=== PATIENT | male | born 1945 | race Caucasian/White ===

== ENCOUNTER → 2016-09-05 | Outpatient (CLI) | payer OTHER ==
--- NOTE | ~2016-09-05 | 2DMMODE ---
[facility] [address] [place] [address] 2 D/M-MODE ECHOCARDIOGRAM Name: BORA LOVE Room #: REG [facility]#: [id number] Admission: 09/05/16 Attend Phys: Trent Jaime MD Discharge: Date of : 47 Date of Service: 09/05/16 1518 Report #: [id number] THIS REPORT FOR: //name// APPROVED REPORT Study performed: 09/05/2016 14:12:44 EXAM: Comprehensive 2D, Doppler, and color-flow Echocardiogram Patient Location: Out-Patient Blood Pressure: 148/88 mmHg HR: 71 bpm Other Information Study Quality: Good Indications Hypertension/HDD 2D Dimensions RVDd: 33.81 mm LVEF(%): 55.27 (>50%) IVSd: 9.42 (7-11mm) LVOT Diam: 21.98 (18-24mm) LVDd: 44.99 mm PWd: 10.03 (7-11mm) Ascending Ao: 32.40 (22-36mm) LVDs: 32.12 (25-40mm) Aortic Root: 32.54 mm IVC: 16.00 mm Alvarez's LVEF: 55.27 % Volumes Left Atrial Volume (Systole) Single Plane 4CH: 34.69 mL Single Plane 2CH: 54.77 mL LA ESV Index: 25.00 mL/m2 Aortic Valve AoV Peak Brendon.: 1.27 m/s AO Peak Gr.: 6.46 mmHg LVOT Max P.14 mmHg LVOT Max V: 1.02 m/s Mitral Valve E/A Ratio: 0.8 MV Decel. Time: 252.69 ms MV E Max Brendon.: 0.54 m/s MV A Brendon.: 0.70 m/s [facility] [place] [address] 2 D/M-MODE ECHOCARDIOGRAM Name: BORA LOVE Room #: REG [facility]#: [id number] Admission: 09/05/16 Attend Phys: Trent Jaime MD Discharge: Date of : 47 Date of Service: 09/05/16 1518 Report #: [id number] MV PHT: 73.28 ms Pulmonary Valve PV Peak Brendon.: 0.96 m/s PV Peak Gr.: 3.69 mmHg Pulmonary Vein P Vein S: 67.7 m/s P Vein D: 26.6 m/s P Vein A Dur.: 23.3 m/s Tricuspid Valve TR Peak Brendon.: 2.19 m/s RAP Estimate: 5.00 mmHg TR Peak Gr.: 19.21 mmHg Left Ventricle The left ventricle is normal size. There is normal left ventricular wall thickness. The left ventricular systolic function is normal. The left ventricular ejection fraction is within the normal range. LVEF is 55-60%. Grade I - abnormal relaxation pattern. Right Ventricle The right ventricle is normal size. The right ventricular systolic function is normal. Atria The left atrium size is normal. The right atrium size is normal. Aortic Valve The aortic valve is normal in structure. No aortic regurgitation is present. There is no aortic valvular stenosis. Mitral Valve The mitral valve is normal in structure. Mild mitral regurgitation. No evidence of mitral valve stenosis. Tricuspid Valve The tricuspid valve is normal in structure. There is trace tricuspid regurgitation. The right atrial pressure is estimated at 5 mmHg. There is no pulmonary hypertension. The estimated PAP was 30 mmHg. Pulmonic Valve The pulmonary valve is normal in structure. There is no pulmonic valvular regurgitation. [employer] [address] [address] 2 D/M-MODE ECHOCARDIOGRAM Name: BORA LOVE Room #: REG [facility]#: [id number] Admission: 09/05/16 Attend Phys: Trent Jaime MD Discharge: Date of : 47 Date of Service: 09/05/16 1518 Report #: [id number] The aortic root is normal in size. IVC is normal in size and collapses >50% with inspiration. Pericardium There is no pericardial effusion. <Conclusion> The left ventricle is normal size. LVEF is 55-60%. The aortic valve is normal in structure. The mitral valve is normal in structure. Mild mitral regurgitation. The pulmonary valve is normal in structure. <ELECTRONICALLY SIGNED> By: Rakan Andrade MD, FACC 09/05/16 1518 1518 1518 Rakan Andrade MD, FAC /INF
== END ==
LOC: CV 13:55
DX: I10 Essential (primary) hypertension (principal)

== ENCOUNTER → 2017-02-06 | Outpatient (CLI) | payer OTHER ==
--- NOTE | ~2017-02-06 | 2DMMODE ---
[facility] [employer] [place] [address] 2 D/M-MODE ECHOCARDIOGRAM Name: BORA LOVE JR Room #: REG [facility]#: [id number] Admission: 02/06/17 Attend Phys: Trent Jaime MD Discharge: Date of : 47 Date of Service: 02/06/17 1533 Report #: [id number] THIS REPORT FOR: //name// APPROVED REPORT Exam: Comprehensive 2D, Doppler, and color-flow Echocardiogram Indication: Atrial Fibrillation Patient Location: Echo lab Stress Nurse: Antonia Snow RN Status: routine Ht: 5 ft 10 in BP: 160/80 mmHg Medical History Medical History: HTN, Hyperlipidemia Cardiac Risk Factors: HTN, Hyperlipidemia Procedure The patient underwent an Exercise Stress Test using the Payam Protocol. Blood pressure, heart rate, and EKG were monitored. An Echocardiogram was performed by structures technician in four stages in quad fashion. At peak stress, four selected images were obtained and placed side by side with resting images for comparison. Stress Test Details Stress Test: Exercise stress testing was performed using a Payam protocol. HR Resting HR: 81 bpm Max Heart Rate (APMHR): 149 bpm Max HR Achieved: 153 bpm Target HR (85% APMHR): 126 bpm % of APMHR: 102 Recovery HR: 91 bpm HR response to stress: Normal HR response to stress BP Resting BP: 160/80 mmHg Max BP: 180/84 mmHg Recovery BP: 150/82 mmHg ECG Resting ECG: Sinus Rhythm, RBBB Stress ECG: Sinus Rhythm, RBBB ST Change: Non-ischemic [facility] [address] [place] [address] 2 D/M-MODE ECHOCARDIOGRAM Name: BORA LOVE JR Room #: REG [facility]#: [id number] Admission: 02/06/17 Attend Phys: Trent Jaime MD Discharge: Date of : 47 Date of Service: 02/06/17 1533 Report #: [id number] Clinical Reason for Termination: Completed protocol, Maximal effort Exercise duration: 9 min 8 sec Highest Stage Achieved: Stage 4: 4.2 mph at 16% grade. Exercise capacity: 10.4 METs Pre-Stress Echo The resting Echocardiogram showed normal left ventricular contractility with an estimated Ejection Fraction of about 55-60%. Normal wall motion in all segments on baseline images. Post-Stress Echo The stress Echocardiogram showed normal left ventricular contractility with an estimated Ejection Fraction of about 60-65%. Normal augmentation of wall motion in all segments on post stress images. Clinical No clinical or ECG evidence for ischemia. Conclusion Clinical Response: Non-ischemic Exercise Capacity: Average Stress ECG Response: Non-ischemic Stress Echo Images: Non-ischemic No clinical, EKG or echocardiographic evidence for ischemia. Other Information Study Quality: Adequate <Conclusion> No clinical, EKG or echocardiographic evidence for ischemia. <ELECTRONICALLY SIGNED> By: Trent Jaime MD 02/06/17 1533 1533 1533 Trent Jaime MD /INF
== END ==
LOC: NUC 08:53 → CV 13:48 → NUC 14:00
DX: I48.91 Unspecified atrial fibrillation (principal); R55 Syncope and collapse